=== PATIENT | female | born 1950 | race Caucasian/White ===

== ENCOUNTER → 2018-07-04 | Outpatient (REF) | payer MEDICARE ==
[~2018-07-04] MED LIST: ALLEGRA180 MG PO; FLOVENT DI50 MCG/BLI IN; HYDROCHLORO25 MG/TAB PO; HYDROCHLOROT12.5 MG PO; LOSARTAN POT25 MG PO; MELOXICAM15 MG PO; PERCOCET 5/325M1 TAB PO; PRAVASTATIN SOD20 MG OR; PRAVASTATIN SOD40 MG PO; SINGULAIR OR; SINGULAIR10 MG PO; ULTRAM50 MG OR; UNK MED; ZOFRAN ODT4 MG PO
[2018-07-04 09:25] LABS: HEMATOCRIT 41.2 % (37.0-47.0); HEMOGLOBIN 13.3 g/dl (12.0-16.0); MEAN CELL VOLUME 96.3 fL CALC (80.0-100.0); MEAN CORPUSCULAR HGB 31.1 pG CALC (26.0-32.0); MEAN CORPUSCULAR HGB CONC 32.3 g/L CALC (32.0-36.0); RED BLOOD COUNT 4.28 mill/uL (4.20-5.60); RED CELL DISTRI WIDTH 12.3 % (11.5-15.5)
[2018-07-04 09:38] LABS: ALBUMIN 4.1 g/dL (3.2-5.0); ALKALINE PHOSPHATASE 45 u/l (38-126); ANION GAP 14 (6-22 (CALC)); BILIRUBIN, TOTAL 0.5 mg/dL (0.0-1.4); BUN 17 mg/dL (8-23); BUN/CREATININE RATIO 22 (12-20 (CALC)); CALCULATED LDLCHOLESTEROL 95 mg/dL (62-129 (CALC)); CARBON DIOXIDE 28 mmol/l (22-30); CHLORIDE 107 mmol/l (95-108); CHOLESTEROL HDL RATIO 3.2 (<4.4 (CALC)); CREATININE 0.8 mg/dL (0.5-1.0); GFR > 60 ML/MIN (>=60 (CALC)); GFR FOR AFR.AMER. > 60 ML/MIN (>=60 (CALC)); HDL CHOLESTEROL 54 mg/dL (>=40); POTASSIUM 4.5 mmol/l (3.5-5.1); SGOT/AST 23 u/l (9-36); SODIUM 144 mmol/l (137-146); TOTAL CHOLESTEROL 174 mg/dl (0-199); TOTAL PROTEIN 6.7 g/dL (6.3-8.2); TOTAL TRIGLYCERIDES 126 mg/dl (30-149); VLDL CHOLESTROL 25 mg/dl (1-41 (CALC))
== END | disposition home or self-care (01) ==
LOC: LAB 07:59
PROVIDERS: ATTEND Internal Medicine
DX: E78.49 Other hyperlipidemia (principal)

== ENCOUNTER → 2018-07-17 | Outpatient (REF) | payer MEDICARE | END | disposition home or self-care (01) | LOC: MRI 09:44 | PROVIDERS: ATTEND Internal Medicine | DX: M51.06 Intervertebral disc disorders with myelopathy, lumbar region (principal); M25.572 Pain in left ankle and joints of left foot ==

== ENCOUNTER 2020-05-20 10:50 | Emergency (ER) | payer MEDICARE ==
[~2020-05-20] VITALS: Ht 157.5 cm; Wt 90.0 kg
[2020-05-20] MEDS ORDERED: KLOR-CON SPRIN10 MEQ PO (11:37)
[2020-05-20] MEDS ORDERED: FUROSEMIDE20 MG PO (11:38)
[2020-05-20] MEDS ORDERED: OMEPRAZOLE DR40 MG PO (11:38)
[2020-05-20] MEDS ORDERED: VITAMIN D32000 UNI2 PO (11:39)
[2020-05-20] MEDS ORDERED: CENTRUM SILVER1 TA1 (11:39)
[2020-05-20 12:31] LABS: HEMATOCRIT 41.1 % (37.0-47.0); HEMOGLOBIN 13.3 g/dl (12.0-16.0); IMMATURE GRANULOCYTES 0.4 % (0.0-5.0); MEAN CELL VOLUME 94.1 fL CALC (80.0-100.0); MEAN CORPUSCULAR HGB 30.4 pG CALC (26.0-32.0); MEAN CORPUSCULAR HGB CONC 32.4 g/dL CAL (32.0-36.0); NEUT# 3.04 thou/uL (2.00-7.15); RED BLOOD COUNT 4.37 mill/uL (4.20-5.60); RED CELL DISTRI WIDTH 13.5 % (11.5-15.5)
[2020-05-20 13:02] LABS: ALBUMIN 3.8 g/dL (3.2-5.0); ALKALINE PHOSPHATASE 54 u/l (38-126); BILIRUBIN, TOTAL 0.4 mg/dL (0.0-1.4); BUN 16 mg/dL (8-23); BUN/CREATININE RATIO 19 (12-20 (CALC)); CARBON DIOXIDE 27 mmol/l (22-30); CHLORIDE 105 mmol/l (95-108); CREATININE 0.9 mg/dL (0.5-1.0); GFR > 60 ML/MIN (>=60 (CALC)); GFR FOR AFR.AMER. > 60 ML/MIN (>=60 (CALC)); SGOT/AST 27 u/l (9-36); SODIUM 139 mmol/l (137-146); TOTAL PROTEIN 6.7 g/dL (6.3-8.2)
[2020-05-20 13:07] LABS: ANION GAP 10 (6-22 (CALC)); POTASSIUM 3.4 mmol/l (3.5-5.1)
[2020-05-20] MEDS ORDERED: CEPHALEXIN500 MG PO (13:40)
[2020-05-20] MEDS ORDERED: MEDDOSEPAK PO (13:40)
[2020-05-20] MEDS ORDERED: ROBITUSSIN AC10 ML PO (13:40)
[2020-05-20] MEDS ORDERED: ZPAK PO (13:52)
[2020-05-20 14:41] VITALS: BP 115/64
== END 2020-05-20 14:41 | disposition home or self-care (01) ==
LOC: ED 10:50
PROVIDERS: Emergency Medicine
DX: U07.1 COVID-19 (principal); J45.901 Unspecified asthma with (acute) exacerbation; I10 Essential (primary) hypertension

== ENCOUNTER 2020-11-09 07:25 | Day surgery (SDC) | payer MEDICARE ==
[~2020-11-09 07:25] MED LIST changes: +BIOTIN EXTR10000 MCG PO; +CENTRUM SILVER1 TA1 PO; +CEPHALEXIN500 MG PO; +COZAAR50 MG PO; +FUROSEMIDE20 MG PO; +KLOR-CON M1010 MEQ PO; -LOSARTAN POT25 MG PO; +MEDDOSEPAK PO; +OMEPRAZOLE DR40 MG PO; +ROBITUSSIN AC10 ML PO; +VITAMIN D32000 UNI2 PO; +ZPAK PO
[2020-11-09] MEDS ORDERED: VENTOLIN HFA IN (08:15)
[2020-11-09 10:27] VITALS: BP 138/64
== END 2020-11-09 10:51 | disposition home or self-care (01) ==
LOC: ENDO 07:25
PROVIDERS: ATTEND Surgery
PROC: 0DBF8ZX Excision of Right Large Intestine, Via Natural or Artificial Opening Endoscopic, Diagnostic (ICD-10-PCS; principal; 2020-11-09)
DX: Z12.11 Encounter for screening for malignant neoplasm of colon (principal); D12.2 Benign neoplasm of ascending colon; K57.30 Diverticulosis of large intestine without perforation or abscess without bleeding; K64.8 Other hemorrhoids; I10 Essential (primary) hypertension